=== PATIENT | female | born 1970 ===

== ENCOUNTER 2023-02-08 23:09 | Emergency (ER) | payer SELFPAY ==
[~2023-02-08] VITALS: Ht 170.2 cm; Wt 107.0 kg
[2023-02-08 23:15] VITALS: BP 142/75; PULSE 102; RESP 16; TEMP 98; O2SAT 98
[2023-02-09] MEDS ORDERED: MAGNESIUM/ALUMINUM HYDROXIDE/SIMETHICONE 30ML UDC PO ONE
[2023-02-09] MEDS ORDERED: FAMOTIDINE 20MG TABLET PO ONE
[2023-02-09] MEDS ORDERED: FAMO-135 MT (00:55)
== END 2023-02-09 01:30 | disposition home or self-care (01) ==
LOC: ER 23:09
DX: R07.0 Pain in throat (principal)
CPT/HCPCS: 71045; 99283